=== PATIENT | female | born 1980 | race Caucasian/White ===

== ENCOUNTER 2017-08-20 21:05 | Emergency (ER) | payer OTHER, BC ==
[2017-08-20] MEDS ORDERED: Ketorolac 60 MG/2 ML SDV IM ONE (21:51)
--- NOTE | 2017-08-20 21:59 | EDM.PDOC ---
ED HPI GENERAL MEDICAL PROBLEM - General Chief Complaint: Back Pain or Injury Stated Complaint: CHEST PAIN Time Seen by Provider: 08/20/17 21:10 Source of Information: Reports: Patient History Limitations: Reports: No Limitations - History of Present Illness INITIAL COMMENTS - FREE TEXT/NARRATIVE: 37 y.o.w.f came to the ed one day after a door smashed against her chest wall. Now, she has difficulty taking a deep breath due to to CW pain., No N/V or diaphoresis or any other acute medical issues. Pt smokes tobacco. Onset: Unknown/Unsure Onset Date: 08/20/17 Onset Time: 07:00 Duration: Hour(s):, Intermittent Location: Reports: Chest Quality: Reports: Ache, Dull Severity: Moderate Improves with: Reports: Rest Worsens with: Reports: Movement Context: Reports: Trauma Associated Symptoms: Reports: No Other Symptoms back/rib Pain Score (Numeric/FACES): 8 - Related Data Allergies Allergy/AdvReac Type Severity Reaction Status Date / Time No Known Allergies Allergy Verified 08/20/17 21:32 Home Meds: Home Meds traMADol [Ultram] 100 mg PO Q6H PRN #16 tab 08/20/17 [Rx] ED ROS GENERAL - Review of Systems Review Of Systems: See Below Constitutional: Reports: No Symptoms HEENT: Reports: No Symptoms Respiratory: Reports: No Symptoms Cardiovascular: Reports: Chest Pain (with deep insp after trauma to left CW) Endocrine: Reports: No Symptoms GI/Abdominal: Reports: No Symptoms : Reports: No Symptoms Musculoskeletal: Reports: No Symptoms Skin: Reports: No Symptoms Neurological: Reports: No Symptoms Psychiatric: Reports: No Symptoms Hematologic/Lymphatic: Reports: No Symptoms Immunologic: Reports: No Symptoms ED EXAM, UPPER BACK/NECK PAIN - Physical Exam Exam: See Below Exam Limited By: Physical Impairment General Appearance: Alert, WD/WN, Mild Distress Eye Exam: Bilateral Eye: Abnormal EOM Ears Exam: Normal External Exam, Normal Canal, Hearing Grossly Normal Nose Exam: Normal Inspection, Normal Mucousa, No Blood Throat/Mouth Exam: Normal Inspection, Normal Lips, Normal Teeth, Normal Gums Head Exam: Atraumatic, Normocephalic Neck Exam: Non-Tender, Full Range of Motion, Normal Alignment, Normal Inspection Cardiovascular/Respiratory: Regular Rate, Rhythm GI/Abdominal: Normal Bowel Sounds (Female) Exam: Deferred Rectal (Female) Exam: Deferred Back Exam: Normal Inspection, Full Range of Motion Extremities: Normal Inspection, Normal Range of Motion, Non-Tender 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 Now, she has difficulty taking a deep breath due to to CW pain., No N/V or diaphoresis or any other acute medical issues. Pt smokes tobacco. PE: Tender ant and post chest wall. lings clear CXR: NAD Impression: CW sprain Tx: Toradolm Ice and ultram Reexam: Improved. Plan: D/C with instructions Last Recorded V/S: Last Vital Signs Temp 36.6 C 08/20/17 21:10 Pulse 97 08/20/17 21:10 Resp 18 08/20/17 21:10 BP 158/109 H 08/20/17 21:10 Pulse Ox 100 08/20/17 21:10 - Orders/Labs/Meds Orders: Active Orders 24 hr Category Date Time Status Ribs 2V w Chest Rt [CR] Stat Exams 08/20/17 21:22 Taken Meds: Medications Discontinued Medications Generic Name Dose Route Start Last Admin Trade Name Freq PRN Reason Stop Dose Admin Ketorolac Tromethamine 60 mg 08/20/17 21:51 08/20/17 21:55 Toradol IM 08/20/17 21:52 60 mg ONETIME ONE Administration Tramadol HCl 100 mg 08/20/17 23:05 Ultram PO 08/20/17 23:06 ONETIME ONE Departure - Departure Time of Disposition: 23:12 Disposition: Home, Self-Care 01 Condition: Good Clinical Impression: Sprain of chest wall Qualifiers: Encounter type: initial encounter Qualified Code(s): S23.8XXA - Sprain of other specified parts of thorax, initial encounter - Discharge Information Prescriptions: traMADol [Ultram] 100 mg PO Q6H PRN #16 tab PRN Reason: severe pain Instructions: Thoracic Strain, [id number] Referrals: PCP,Unknown [Primary Care Provider] - Forms: ED Department Discharge, ED Return to Work/School Form Additional Instructions: Please apply ICE to the affected area, Motrin and ultram (tramadol) for pain, F /U, come back if your if your symptoms get worse acutely - My Orders Last 24 Hours: My Active Orders 08/20/17 21:22 Ribs 2V w Chest Rt [CR] Stat - Assessment/Plan Last 24 Hours: My Active Orders 08/20/17 21:22 Ribs 2V w Chest Rt [CR] Stat
[2017-08-20] MEDS ORDERED: traMADol 50 MG Tab PO ONE ×2 (23:04→23:05)
[2017-08-21 00:48] VITALS: BP 137/94
== END 2017-08-20 23:25 | disposition home or self-care (01) ==
LOC: FB.ED 21:05
DX: S23.8XXA Sprain of other specified parts of thorax, initial encounter (principal); W22.8XXA Striking against or struck by other objects, initial encounter
CPT/HCPCS: 71101; 96372; 99283; A9270; J1885

== ENCOUNTER 2018-08-10 23:02 | Emergency (ER) | payer BC, OTHER ==
[2018-08-10] MEDS ORDERED: Dexamethasone 4 MG/ML 5 ML MDV IM ONE (23:35)
--- NOTE | 2018-08-10 23:38 | EDM.PDOC ---
ED HPI GENERAL MEDICAL PROBLEM - General Chief Complaint: Allergic Reaction Stated Complaint: ALLERGIC REACTION TO MEDS Time Seen by Provider: 08/10/18 23:20 Source of Information: Reports: Patient History Limitations: Reports: No Limitations - History of Present Illness INITIAL COMMENTS - FREE TEXT/NARRATIVE: Masoud comes to [facility] ED with an itchy reddened rash over the face, torso and extremities that occurred about 1 hour after taking an Amoxicillin 500 mg tab for a dental infection this afternoon. There is no swelling of the tongue, lips or hypopharynx, no stridor or wheezing, and no LOC. She has taken Benadryl 100 mg without benefit. - Related Data Allergies Allergy/AdvReac Type Severity Reaction Status Date / Time No Known Allergies Allergy Verified 08/20/17 21:32 Home Meds: Home Meds traMADol [Ultram] 100 mg PO Q6H PRN #16 tab 08/20/17 [Rx] Past Medical History Psychiatric History: Reports: Addiction - Past Surgical History GI Surgical History: Reports: Cholecystectomy Female Surgical History: Reports: Hysterectomy Social & Family History - Tobacco Use Smoking Status *Q: Current Every Day Smoker Years of Tobacco use: 20 Packs/Tins Daily: 1 - Alcohol Use Days Per Week of Alcohol Use: 2 Number of Drinks Per Day: 3 Total Drinks Per Week: 6 - Recreational Drug Use Recreational Drug Use: No Other Recreational Drug Type: Patient denies recreational drug use. ED ROS ALLERGIC REACTION - Review of Systems Review Of Systems: ROS reveals no pertinent complaints other than HPI. ED EXAM GENERAL NO PERIP PULSE - Physical Exam Exam: See Below Exam Limited By: No Limitations General Appearance: Alert, WD/WN, Mild Distress Eye Exam: Bilateral Eye: EOMI, Normal Inspection, PERRL Ears: Normal External Exam, Normal TMs Nose: Normal Inspection, Normal Mucosa Throat/Mouth: Normal Inspection, Normal Lips, Normal Oropharynx, Normal Voice, No Airway Compromise Head: Normocephalic Neck: Normal Inspection, Supple, Non-Tender Respiratory/Chest: Lungs Clear, Normal Breath Sounds, Chest Non-Tender Cardiovascular: Regular Rate, Rhythm, No Murmur Back Exam: Normal Inspection Extremities: Normal Inspection Neurological: Alert, Oriented, CN II-XII Intact, Normal Cognition, No Motor/ Sensory Deficits Psychiatric: Normal Affect, Normal Mood Skin Exam: Warm, Dry, Intact, Erythema, Other (urticaria) Lymphatic: No Adenopathy Course - Vital Signs Text/Narrative:: Following assessment at the [facility] ED, I administered Dexamethasone 10 mg IM. Patient tolerated med well. Last Recorded V/S: Last Vital Signs Temp 36.5 C 08/10/18 23:10 Pulse 104 H 08/10/18 23:10 Resp 20 08/10/18 23:10 BP 140/100 H 08/10/18 23:10 Pulse Ox 98 08/10/18 23:10 Departure - Departure Time of Disposition: 23:47 Disposition: Home, Self-Care 01 Condition: Fair Clinical Impression: Allergic drug rash due to anti-infective agent - Discharge Information *PRESCRIPTION DRUG MONITORING PROGRAM REVIEWED*: Not Applicable *COPY OF PRESCRIPTION DRUG MONITORING REPORT IN PATIENT NICOL: Not Applicable Referrals: PCP,None [Primary Care Provider] - - Problem List & Annotations (1) Allergic drug rash due to anti-infective agent SNOMED Code(s): 40229059 Code(s): L27.0 - GEN SKIN ERUPTION DUE TO DRUGS AND MEDS TAKEN INTERNALLY; T37.95XA - ADVRS EFFECT OF UNSP SYS ANTI-INFECT AND ANTIPARASITIC, INIT Status : Acute Current Visit: Yes Annotation/Comment:: Following administration of Dexamethasone 10 mg IM, she may continue Benadryl 50 mg q 6 hrs prn. - Problem List Review Problem List Initiated/Reviewed/Updated: Yes - Assessment/Plan Plan: Follow up with PCP if needed.
[2018-08-11 00:39] VITALS: BP 151/108
== END 2018-08-11 | disposition home or self-care (01) ==
LOC: FB.ED 23:02
DX: L50.0 Allergic urticaria (principal); T36.0X5A Adverse effect of penicillins, initial encounter; K04.7 Periapical abscess without sinus; F17.210 Nicotine dependence, cigarettes, uncomplicated
CPT/HCPCS: 96372; 99282; J1100

== ENCOUNTER 2019-04-17 10:11 | Emergency (ER) | payer BC ==
--- NOTE | 2019-04-17 10:45 | EDM.PDOC ---
ED HPI GENERAL MEDICAL PROBLEM - General Chief Complaint: General Stated Complaint: POSSIBLE ABSCESS TOOTH Time Seen by Provider: 04/17/19 10:25 Source of Information: Reports: Patient History Limitations: Reports: No Limitations - History of Present Illness INITIAL COMMENTS - FREE TEXT/NARRATIVE: 39-year-old female with a broken tooth about a month ago on the left lower jaw which did not give her any pain until yesterday evening when she began to have some pain in her left lower jaw on tooth remnant. She awoke at 4 AM with increased pain and swelling over her left lower jaw with pain going into her left ear and her left anterior neck. The pain is currently a 9/10. It is throbbing, aching and sharp. It radiates over the left side of her face and down to her neck as above. She's having no trouble swallowing. She is having trouble breathing. She has tried ibuprofen and Tylenol without relief. No nausea or vomiting. There are no other associated signs or symptoms. There are no other modifying factors. Onset: Other (Yesterday as above) Duration: Getting Worse Location: Reports: Face (Left lower dental pain with jaw pain) Quality: Reports: Ache, Sharp, Throbbing Severity: Severe Improves with: Reports: None Worsens with: Reports: Other (Palpation. Trying to eat. 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 Left tooth Pain Score (Numeric/FACES): 8 - Related Data Allergies Allergy/AdvReac Type Severity Reaction Status Date / Time amoxicillin Allergy Itching Verified 04/17/19 10:29 Home Meds: Home Meds Acetaminophen [Tylenol Extra Strength] 1,000 mg PO Q8H PRN 04/17/19 [History] Clindamycin HCl 450 mg PO TID 10 Days #90 capsule 04/17/19 [Rx] Hydrocodone/Acetaminophen [[place] 5-325 Tablet] 1 - 2 tab PO Q6H PRN #12 tablet 04/17/19 [Rx] Past Medical History - Past Health History Medical/Surgical History: Denies Medical/Surgical History - Past Surgical History GI Surgical History: Reports: Cholecystectomy Female Surgical History: Reports: Hysterectomy Social & Family History - Tobacco Use Smoking Status *Q: Current Every Day Smoker Years of Tobacco use: 20 Packs/Tins Daily: 1 - Caffeine Use Caffeine Use: Reports: Soda - Recreational Drug Use Recreational Drug Use: No - Living Situation & Occupation Occupation: 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 (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.) ED ROS GENERAL - Review of Systems Review Of Systems: See Below Constitutional: Reports: No Symptoms HEENT: Reports: Dental Pain, Other (Left lower jaw pain and swelling) Respiratory: Reports: No Symptoms Cardiovascular: Reports: No Symptoms GI/Abdominal: Reports: No Symptoms : Reports: No Symptoms Musculoskeletal: Reports: No Symptoms Skin: Reports: No Symptoms Neurological: Reports: No Symptoms Hematologic/Lymphatic: Reports: No Symptoms Immunologic: Reports: No Symptoms ED EXAM, GENERAL - Physical Exam Exam: See Below Exam Limited By: No Limitations General Appearance: Alert, WD/WN, Moderate Distress Eye Exam: Bilateral Eye: EOMI, Normal Inspection, PERRL Ears: Normal External Exam, Hearing Grossly Normal Nose: Normal Inspection, Normal Mucosa, No Blood Throat/Mouth: Normal Inspection, Inflammation (Around left lower jaw with no definite pointing abscess. Carious first molar on left lower jaw (essentially gone).) Head: Atraumatic, Normocephalic Neck: Supple, Full Range of Motion, Lymphadenopathy (L) Respiratory/Chest: No Respiratory Distress, Lungs Clear, Normal Breath Sounds, No Accessory Muscle Use, Chest Non-Tender Cardiovascular: Normal Peripheral Pulses, Regular Rate, Rhythm, No JVD GI/Abdominal: Normal Bowel Sounds, Soft, Non-Tender, No Mass Back Exam: Normal Inspection Extremities: Normal Inspection, Normal Range of Motion, Non-Tender, No Pedal Edema, Normal Capillary Refill Neurological: Alert, Oriented, CN II-XII Intact, Normal Cognition, No Motor/ Sensory Deficits Skin Exam: Warm, Dry, Intact, Normal Color, No Rash Course - Vital Signs Last Recorded V/S: Last Vital Signs Temp 36.5 C 04/17/19 10:30 Pulse 84 04/17/19 10:30 Resp 18 04/17/19 10:30 BP 159/102 H 04/17/19 10:30 Pulse Ox 100 04/17/19 10:30 - Re-Assessments/Exams Free Text/Narrative Re-Assessment/Exam: 04/17/19 10:47: Patient was reviewed to the [facility] website for all states surrounding [place] and she has had no narcotic prescriptions over the past year. Departure - Departure Time of Disposition: 10:50 Disposition: Home, Self-Care 01 Condition: Good Clinical Impression: Dental abscess, Dental caries, Facial cellulitis - Discharge Information *PRESCRIPTION DRUG MONITORING PROGRAM REVIEWED*: Yes (Patient with no narcotic prescriptions over the past year with all states around [place] checked) *COPY OF PRESCRIPTION DRUG MONITORING REPORT IN PATIENT NICOL: No Prescriptions: Clindamycin HCl 450 mg PO TID 10 Days #90 capsule Hydrocodone/Acetaminophen [[place] 5-325 Tablet] 1 - 2 tab PO Q6H PRN #12 tablet PRN Reason: Moderate to severe pain Instructions: Dental Abscess, [id number] Referrals: PCP,None [Primary Care Provider] - Additional Instructions: You have a dental abscess. There is an infection in your face associated with this. You need to see a dentist [facility] can arrange as they will be the only doctor that can definitively take care of your problem. Medication as prescribed (clindamycin 150 mg, hydrocodone 5/325). You should take probiotics or eat yogurt daily while you are on the antibiotics. You may also take ibuprofen 800 mg by mouth every 8 hours as needed for pain. Back to the emergency department for trouble breathing, trouble swallowing, worsening signs of infection or any other concerning sign or symptom.
[2019-04-17 11:05] VITALS: BP 151/96
== END 2019-04-17 11:02 | disposition home or self-care (01) ==
LOC: FB.ED 10:11
DX: K04.7 Periapical abscess without sinus (principal); K02.9 Dental caries, unspecified; L03.211 Cellulitis of face; F17.210 Nicotine dependence, cigarettes, uncomplicated; Z88.1 Allergy status to other antibiotic agents; Z90.49 Acquired absence of other specified parts of digestive tract; Z90.710 Acquired absence of both cervix and uterus
CPT/HCPCS: 99282

== ENCOUNTER 2021-10-14 16:07 | Emergency (ER) | payer BC ==
[2021-10-14] MEDS ORDERED: Metoprolol Tartrate 25 MG Tab PO ONE (16:31)
--- NOTE | 2021-10-14 16:38 | EDM.PDOC ---
ED HPI GENERAL MEDICAL PROBLEM - General Chief Complaint: Chest Pain Stated Complaint: CHEST PRESSURE Time Seen by Provider: 10/14/21 16:20 Source of Information: Reports: Patient - History of Present Illness INITIAL COMMENTS - FREE TEXT/NARRATIVE: 41-year-old lady recently started on amlodipine for high blood pressure and with a family history of high blood pressure but not cardiovascular disease/early cardiovascular came to the emergency department for evaluation of chest pain/pressure. She points to the midsternal area at approximately T2-T3 and states that she has a consistent pressure type pain over her chest. She states that the pain will occasionally radiate to her left shoulder, left axilla, and very occasionally to her right shoulder. She states the pain will radiate to her upper back more often than not. He states that taking a deep breath will often relieve the pain somewhat. She does not know of anything that makes the pain worse. The pain woke her up this morning from sleep that is why she came into the emergency department. He saw a physician with this complaint and was started on amlodipine 3 months ago. However, she has forgotten to take her amlodipine on a regular basis and has not taken it for several days. The pain awoke her from sleep as mentioned above and scared her. She took 4 baby aspirins this morning prior to coming to the emergency department. She has no other complaints and denies fever, chills, flulike symptoms, change in bowel or bladder habits. Chest Pain Score (Numeric/FACES): 6 - Related Data Allergies Allergy/AdvReac Type Severity Reaction Status Date / Time amoxicillin Allergy Itching Verified 10/14/21 16:28 Home Meds: Home Meds amLODIPine [Norvasc] 5 mg PO DAILY 10/14/21 [History] Past Medical History - Past Health History Medical/Surgical History: Denies Medical/Surgical History HEENT History: Reports: Other (See Below) Other HEENT History: Hx tooth infection. 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.) ED ROS GENERAL - Review of Systems Review Of Systems: See Below Constitutional: Reports: No Symptoms HEENT: Reports: No Symptoms Respiratory: Reports: No Symptoms Cardiovascular: Reports: Chest Pain Endocrine: Reports: No Symptoms GI/Abdominal: Reports: No Symptoms : Reports: No Symptoms Musculoskeletal: Reports: Back Pain Skin: Reports: No Symptoms Neurological: Reports: No Symptoms Psychiatric: Reports: No Symptoms Hematologic/Lymphatic: Reports: No Symptoms Immunologic: Reports: No Symptoms ED EXAM, GENERAL - Physical Exam Exam: See Below Exam Limited By: No Limitations General Appearance: Alert, WD/WN, No Apparent Distress Eye Exam: Bilateral Eye: EOMI Head: Atraumatic, Normocephalic Neck: Normal Inspection Respiratory/Chest: No Respiratory Distress, Lungs Clear Cardiovascular: No Murmur, Tachycardia Peripheral Pulses: 2+: Radial (L), Radial (R), Dorsalis Pedis (L), Dorsalis Pedis (R) GI/Abdominal: Normal Bowel Sounds, Soft, Non-Tender Back Exam: Other (Tenderness to palpation in the superior thoracic spine) Extremities: Normal Inspection Neurological: Alert, Oriented, CN II-XII Intact, Normal Cognition Psychiatric: Normal Affect, Normal Mood Skin Exam: Warm, Dry Course - Vital Signs Text/Narrative:: EKG shows sinus rhythm with mild tachycardia at 93, no obvious contiguous ST-T segment abnormalities. Automatic reading on EKG shows mildly prolonged GOPI. Patient's troponin came back significantly elevated at 750. Patient had already taken 324 mg of baby aspirin in the morning prior to coming to the emergency department she was given metoprolol 25 mg, a 4000 unit heparin bolus and a heparin drip was started at 12units/kg/h, approximately 960 units/h. [facility] accepted transfer of patient for further evaluation and treatment. Last Recorded V/S: Last Vital Signs Temp 36.6 C 10/14/21 16:07 Pulse 92 10/14/21 17:08 Resp 18 10/14/21 16:07 BP 172/108 H 10/14/21 17:08 Pulse Ox 98 10/14/21 16:07 - Orders/Labs/Meds Orders: Active Orders 24 hr Category Date Time Status CXR [Chest 2V] [CR] Stat Exams 10/14/21 16:25 Taken Heparin Sodium/0.45% NaCl [Heparin 25,000 Units in 1/2 Med 10/14/21 17:15 Ordered NS 500 ML] 25,000 units in 500 ml IV TITRATE EKG 12 Lead [EK] Routine Ther 10/14/21 16:30 Ordered Medication Orders Heparin Sodium/Sodium Chloride (Heparin 25,000 Units In 1/2 Ns 500 Ml) 25,000 units in 500 mls @ 19.595 mls/hr IV TITRATE GARRETT; Protocol Labs: Laboratory Tests 10/14/21 10/14/21 10/14/21 Range/Units 16:35 16:35 16:35 WBC 10.2 (3.0-10.3) x10-3/uL RBC 5.10 (3.60-5.20) x10(6)uL Hgb 15.0 (11.4-15.5) g/dL Hct 44.5 (34.2-48.2) % MCV 87.3 (76.7-100.5) fL MCH 29.3 (23.9-33.9) pg MCHC 33.6 (31.9-34.8) g/dL RDW 12.9 (12.3-16.5) % Plt Count 319 (151-488) x10(3)uL MPV 7.1 (7.1-12.4) fL Neut % (Auto) 73.7 (30.8-76.2) % Lymph % (Auto) 18.2 L (18.4-52.1) % [place] % (Auto) 7.2 (4.4-15.7) % Eos % (Auto) 0.5 L (0.6-8.1) % Baso % (Auto) 0.4 (0.2-1.5) % Neut # (Auto) 7.5 H (1.5-6.3) x10-3/uL Lymph # (Auto) 1.9 (1.0-4.4) x10-3/uL [place] # (Auto) 0.7 (0.3-1.0) x10-3/uL Eos # (Auto) 0.1 (0.0-0.8) x10-3/uL Baso # (Auto) 0.0 (0.0-0.1) x10-3/uL Sodium 138 (135-145) mmol/L Potassium 4.3 (3.5-5.3) mmol/L Chloride 103 (100-110) mmol/L Carbon Dioxide 26 (21-32) mmol/L BUN 8 (7-18) mg/dL Creatinine 0.8 (0.55-1.02) mg/dL Est Cr Clr Drug Dosing 80.72 mL/min Estimated GFR (MDRD) > 60 (>60) BUN/Creatinine Ratio 10.0 (9-20) Glucose 95 (80-116) mg/dL Calcium 9.4 (8.6-10.2) mg/dL Total Bilirubin 0.6 (0.1-1.3) mg/dL AST 18 (5-25) IU/L ALT 27 (12-36) U/L Alkaline Phosphatase 70 (56-112) IU/L Troponin I 751.5 H* (4.0-60.3) pg/mL Total Protein 8.5 H (6.0-8.0) g/dL Albumin 4.2 (3.5-5.2) g/dL Globulin 4.3 g/dL Albumin/Globulin Ratio 1.0 Meds: Medications Generic Name Dose Route Start Last Admin Trade Name Freq PRN Reason Stop Dose Admin Heparin Sodium/Sodium Chloride 25,000 units in 500 mls @ 19.595 mls/hr 10/14/21 17:15 Heparin 25,000 Units In 1/2 Ns 500 Ml IV TITRATE GARRETT Protocol 12 UNITS/KG/HR Discontinued Medications Generic Name Dose Route Start Last Admin Trade Name Freq PRN Reason Stop Dose Admin Heparin Sodium (Porcine) 4,000 units 10/14/21 17:08 10/14/21 17:11 Heparin Sodium 5,000 Units/Ml Vial IVPUSH 10/14/21 17:09 4,000 units .BOLUS ONE Administration Metoprolol Tartrate 25 mg 10/14/21 16:31 10/14/21 17:08 Metoprolol Tartrate 25 Mg Tab PO 10/14/21 16:32 25 mg ONETIME ONE Administration Departure - Departure Time of Disposition: 17:36 Disposition: DC/Tfer to Acute Hospital 02 Reason for Transfer *Q: Primary PCI Indicated Condition: Fair Clinical Impression: Acute coronary syndrome, Elevated troponin, Chest pressure, Hypertension Forms: ED Department Discharge Sepsis Event Note (ED) - Focused Exam Vital Signs: Vital Signs Temp Pulse Pulse Resp BP BP Pulse Ox 10/14/21 17:08 92 172/108 H 10/14/21 16:07 36.6 C 93 18 172/108 H 98 - My Orders Last 24 Hours: My Active Orders 10/14/21 16:25 CXR [Chest 2V] [CR] Stat 10/14/21 16:30 EKG 12 Lead [EK] Routine 10/14/21 17:15 Heparin Sodium/0.45% NaCl [Heparin 25,000 Units in 1/2 NS 500 ML] 25,000 units in 500 ml IV TITRATE - Assessment/Plan Last 24 Hours: My Active Orders 10/14/21 16:25 CXR [Chest 2V] [CR] Stat 10/14/21 16:30 EKG 12 Lead [EK] Routine 10/14/21 17:15 Heparin Sodium/0.45% NaCl [Heparin 25,000 Units in 1/2 NS 500 ML] 25,000 units in 500 ml IV TITRATE
--- NOTE | 2021-10-14 16:41 | PCM.EKG ---
#1 Interpretation EKG Date: 10/14/21 Time: 16:17 EKG Interpretation Comments: Sinus tachycardia, rate 93, likely normal axis, no obvious ST-T segment abnormalities in contiguous leads, occasional PVCs
[2021-10-14] MEDS ORDERED: Heparin Sodium 5,000 Units/ML Vial IVPUSH ONE (17:08)
[2021-10-14 17:09] VITALS: PULSE 92
[2021-10-14] MEDS ORDERED: Heparin Sodium/0.45% NaCl 25,000 UNITS/500 ML BAG IV SCH (17:15)
[2021-10-14 18:48] VITALS: BP 141/93
== END 2021-10-14 18:55 ==
LOC: FB.ED 16:07
DX: I24.9 Acute ischemic heart disease, unspecified (principal); I10 Essential (primary) hypertension; R79.89 Other specified abnormal findings of blood chemistry; Z88.0 Allergy status to penicillin
CPT/HCPCS: 36415; 71046; 80053; 84484; 85025; 93005; 96365; 96366; 99285-25; A9270-GY; J1644